=== PATIENT | male | born 1955 | race Two or more races ===

== ENCOUNTER 2017-12-11 21:33 | Emergency (ER) | payer OTHER ==
[~2017-12-11] VITALS: Ht 193 cm; Wt 136.1 kg
[2017-12-11] MEDS ORDERED: VASOTEC10 MG (21:40)
[2017-12-11] MEDS ORDERED: JANUMET 50-1,01 EACH (21:40)
[2017-12-11] MEDS ORDERED: NEURONTIN300 MG (21:40)
[2017-12-11] MEDS ORDERED: AMBIEN10 MG (21:41)
[2017-12-11] MEDS ORDERED: CRESTOR20 MG (21:41)
[2017-12-11] MEDS ORDERED: ZOLOFT25 MG (21:42)
[2017-12-12] MEDS ORDERED: ZYRTEC10 MG PO (02:48)
== END 2017-12-12 02:42 | disposition home or self-care (01) ==
LOC: ER 21:33
DX: R04.0 Epistaxis (principal)